=== PATIENT | male | born 1950 | race Caucasian/White ===

== ENCOUNTER 2023-05-08 06:25 | Emergency (ER) | payer MEDICARE, BC, SELFPAY ==
[2023-05-08 06:33] VITALS: BP 146/75; PULSE 91; RESP 20; TEMP 36.8; O2SAT 96; BMI 27.4
--- NOTE | 2023-05-08 06:52 | ED_ITS ---
HPI - General Adult General Chief complaint: Urogenital Problems, Male Stated complaint: cannot urinate Time Seen by Provider: 05/08/23 06:51 History of Present Illness HPI narrative: Patient aox4, ABCs intact. Patient c/o urinary retention, fever and shaking since Monday. 72-year-old man presenting to the emergency department with concern of difficulty urinating head increasingly so. Does not recall history of severe urinary retention. Measured a fever at around 101 I believe about a day and a half ago. Had some shakes at that time to. Yesterday at 100. He acknowledges today that his temperature is normal. Is not really having any pain more of discomfort across the low abdomen. No rashes. No shortness of breath no chest pain. Related Data Home Medications Medication Instructions Recorded Confirmed aspirin 325 mg tablet,delayed 325 mg PO QDAY 02/02/23 05/08/23 release atorvastatin 40 mg tablet 40 mg PO DAILY 02/02/23 05/08/23 carvedilol 25 mg tablet 25 mg PO BID 02/02/23 05/08/23 lisinopril 20 mg tablet 20 mg PO DAILY 02/02/23 05/08/23 methotrexate sodium 2.5 mg tablet 20 mg PO 02/02/23 02/02/23 Allergies Allergy/AdvReac Type Severity Reaction Status Date / Time Penicillins Allergy Unknown Verified 05/08/23 06:33 Review of Systems Status of ROS: Reports: 6 or more systems reviewed and unremarkable except as noted in History and below [facility] Social History Smoking Status: Never smoker Do you use any of these nicotine containing products: None Non-prescribed substance use: denies use Exam Narrative: Exam Narrative: Pleasant. Seems a little distracted, uncertain. Easily conversant though. Breathing easily. Lungs appear to be clear. Heart with mildly elevated rate in a regular rhythm. Little distant but no murmur rub or gallop identified. Abdomen is soft and mildly uncomfortable to palpation across lower abdomen. No discrete masses are appreciated. Has no flank pain. Extremities are without edema. Skin is warm and dry. Cranial nerves 2-12 intact. Const: Vital Signs, click to edit/add: Vital Signs - 24 hr 05/08/23 06:33 05/08/23 08:53 05/08/23 08:57 Temperature 98.3 F 100.0 F H 100.0 F H Pulse Rate [Pulse Oximeter] 91 88 Respiratory Rate 20 16 Blood Pressure [Ri ght Upper Arm] 146/75 H 141/69 H Pulse Oximetry 96 98 Oxygen Delivery Me thod Room Air Room Air Documenting provider has reviewed patient's vital signs: yes Course Vital Signs Vital signs: Initial Vital Signs Temperature 98.3 F 05/08/23 06:33 Temperature Source Temporal Artery Scan 05/08/23 06:33 Pulse Rate 91 05/08/23 06:33 Pulse Strength 0+ Absent 05/08/23 06:33 Respiratory Rate 20 05/08/23 06:33 Blood Pressure 146/75 H 05/08/23 06:33 Blood Pressure Mean 98 05/08/23 06:33 Pulse Oximetry 96 05/08/23 06:33 Oxygen Delivery Method Room Air 05/08/23 06:33 Vital Signs Temperature 98.3 F 05/08/23 06:33 Pulse Rate 91 05/08/23 06:33 Respiratory Rate 20 05/08/23 06:33 Blood Pressure 146/75 H 05/08/23 06:33 Pulse Oximetry 96 05/08/23 06:33 Oxygen Delivery Method Room Air 05/08/23 06:33 Temperature 100.0 F H 05/08/23 08:57 Pulse Rate 88 05/08/23 08:57 Respiratory Rate 16 05/08/23 08:57 Blood Pressure 141/69 H 05/08/23 08:57 Pulse Oximetry 98 05/08/23 08:57 Oxygen Delivery Method Room Air 05/08/23 08:57 Medical Decision Making MDM Narrative Medical decision making narrative: I had initially suspect some degree of urinary tract infection maybe precipitating a urinary retention situation. Will need to place a Gutierrez for better measurement as prior to seeing this patient I did request bladder scan noting 266 mL. Scanner is generally unreliable however. Concern of sepsis alt amadeo vitals this time do not support that. Labs will be pending. Methotrexate noted in medications White count is mildly elevated. Urine is positive. Given Rocephin. May have developed some pyelonephritis here. Anticipate continuing then ciprofloxacin outpatient. Vitals have been well during time in the emergency department. May actually chronically have some degree of urinary retention. Do intend to pull this Gutierrez prior to departure. See patient discharge plan. Lab Data Lab results reviewed: Yes I reviewed the patient's lab results Labs: Lab Results 05/08/23 05/08/23 Range/Units 07:10 07:20 WBC 12.83 H (4.50-11.00) K/uL RBC 4.08 L (4.30-5.90) m/uL Hgb 13.1 L (13.5-17.5) gm/dL Hct 38.3 (37.0-53.0) % MCV 94 (80-100) fL MCH 32 (26-34) pg MCHC 34 (32-36) gm/dL RDW Coeff of Amos 13.1 (11.5-15.5) % Plt Count 133 L (140-440) K/uL Neut % (Auto) 89.7 H (42.0-72.0) % Lymph % (Auto) 3.0 L (20-44) % [place] % (Auto) 6.7 (0.0-11.0) % Eos % (Auto) 0.1 (0.0-7.0) % Baso % (Auto) 0.1 (0.0-3.0) % Neut # (Auto) 11.50 H (1.7-7.0) K/uL Lymph # (Auto) 0.40 L (0.90-2.90) K/uL [place] # (Auto) 0.90 (0.00-0.90) K/UL Eos # (Auto) 0.00 (0.00-0.50) K/uL Baso # (Auto) 0.00 (0.00-0.30) K/uL Abs Immat Gran (auto) 0.10 (0.00-0.30) K/uL Imm/Tot Granulo (auto) 0.4 % Sodium 134 L (135-149) mmol/L Potassium 3.4 L (3.6-5.1) mmol/L Chloride 100 (96-114) mmol/L Carbon Dioxide 27 (20-32) mmol/L BUN 16 (7-30) mg/dL Creatinine 0.6 (0.5-1.5) mg/dL Estimated Creat Clear 63.65 Estimated GFR 102 ml/min Glucose 150 H (60-115) mg/dL Lactate 1.0 (0.5-1.9) mmol/L Calcium 8.6 (8.4-10.6) mg/dL C-Reactive Protein 17.2 H (0.5-1.0) mg/dL Urine Color Yellow (Yellow) Urine Appearance Slightly Cloudy A (Clear) Urine pH 5.5 (5.0-8.5) Ur Specific [place] 1.020 (1.000-1.030) Urine Protein 1+ A (Negative) Urine Glucose (UA) Negative (Negative) Urine Ketones 1+ A (Negative) Urine Blood 3+ A (Negative) Urine Nitrite Negative (Negative) Urine Bilirubin Negative (Negative) Urine Urobilinogen 2.0 A (0.2-1.0) Ur Leukocyte Esterase 1+ A (Negative) Urine RBC 5-10 A (0-2) Urine WBC 5-10 A (0-5) Ur Squamous Epith Cells None (None-Few) Urine Bacteria Many A (None) SARS-CoV-2 (PCR) Negative SARS-CoV-2 (Negative) Influenza Type A (PCR) Negative PCR FLU A (Negative) Influenza Type B (PCR) Negative PCR FLU B (Negative) Discharge Plan Discharge Clinical Impression: Urinary tract infection, Urinary retention Patient Disposition: Home w/ Parent or Adult Condition: Improved Additional Instructions: Focus on hydration, ideally with water. Can take ibuprofen or acetaminophen though if fever seems to be increasing, you are feeling more weak, repeated vomiting, I would return to the emergency department. Monitor your urine out to get an idea whether or not you are feeling empty. Might follow up in primary care to get this reassessed in the future. Rest over the next couple of days. A urine culture is pending here. Will call you if we need to change antibiotics. Blood cultures are also pending. Ciprofloxacin from [facility]. Prescriptions: No Action atorvastatin 40 mg tablet 40 mg PO DAILY carvedilol 25 mg tablet 25 mg PO BID lisinopril 20 mg tablet 20 mg PO DAILY methotrexate sodium 2.5 mg tablet 20 mg PO aspirin 325 mg tablet,delayed release (DR/EC) 325 mg PO QDAY Follow Up/Referrals: Edgardo Price MD [Primary Care Provider] - Stand Alone Forms: [employer] Info Instructions
[2023-05-08 07:45] LABS: Basophils Percent Auto 0.1 % (0.0-3.0); Eosinophils Percent Auto 0.1 % (0.0-7.0); Hematocrit 38.3 % (37.0-53.0); Hemoglobin* 13.1 gm/dL (13.5-17.5); Immature Granulocytes Pct Auto 0.4 %; Mean Corpuscular HGB Conc 34 gm/dL (32-36); Mean Corpuscular Hemoglobin 32 pg (26-34); Mean Corpuscular Volume 94 fL (80-100); Monocytes Percent Auto 6.7 % (0.0-11.0); Neutrophils Percent Auto 89.7 % (42.0-72.0); Platelet Count* 133 K/uL (140-440); RDW Coefficient of Variation % 13.1 % (11.5-15.5); Red Blood Count 4.08 m/uL (4.30-5.90); White Blood Count* 12.83 K/uL (4.50-11.00)
[2023-05-08 07:52] LABS: Slide Review Reflex No
[2023-05-08 08:04] LABS: Chloride* 100 mmol/L (96-114); Potassium* 3.4 mmol/L (3.6-5.1); Sodium* 134 mmol/L (135-149)
[2023-05-08] MEDS: 0.9 % SODIUM CHLORIDE 1000 ml 1,000 ML IV (08:06)
[2023-05-08 08:07] LABS: Creatinine* 0.6 mg/dL (0.5-1.5); Est. Creatinine Clearance* 63.65; Estimated Glomerular Filt Rate 102 ml/min
[2023-05-08 08:08] LABS: Blood Urea Nitrogen* 16 mg/dL (7-30); Calcium* 8.6 mg/dL (8.4-10.6); Carbon Dioxide* 27 mmol/L (20-32); Glucose* 150 mg/dL (60-115)
[2023-05-08 08:09] LABS: Appearance Urine Slightly Cloudy (Clear); Bilirubin Urine Negative (Negative); Blood Urine 3+ (Negative); Color Urine Yellow (Yellow); Glucose Urine Negative (Negative); Ketones Urine 1+ (Negative); Leukocyte Esterase Urine 1+ (Negative); Nitrite Urine Negative (Negative); Protein Urine 1+ (Negative); pH Urine 5.5 (5.0-8.5)
[2023-05-08 08:15] LABS: Bacteria Urine Many
[2023-05-08 08:23] LABS: PCR FLU A Negative PCR FLU A (Negative); PCR FLU B Negative PCR FLU B (Negative)
[2023-05-08 08:24] LABS: C Reactive Protein* 17.2 mg/dL (0.5-1.0)
[2023-05-08 08:28] LABS: SARS PCR* Negative SARS-CoV-2 (Negative)
[2023-05-08] MEDS: cefTRIAXone 1 GM in 0.9 % SODIUM CHLORIDE Mini-bag 100 ML IVPB (08:44)
[2023-05-08 08:53] VITALS: TEMP 37.8
[2023-05-08 08:57] VITALS: BP 141/69; PULSE 88; RESP 16; TEMP 37.8; O2SAT 98
[2023-05-08] MEDS: ACETAMINOPHEN 500 MG TABLET 1000 MG PO (09:18)
--- NOTE | 2023-05-08 19:02 | ED.NURSE ---
chart accessed due to calling here and wanting to know what he should do if the urinary output was slowing. is feeling very weak yet. was encouraged to drink more and to absolutely take care of himself and rest. will return to ed if he feels that he is worsening -or fever becomes high.
== END 2023-05-08 10:04 | disposition home or self-care (01) ==
PROVIDERS: Emergency Provider Family Medicine; PCP Family Medicine
DX: N39.0 Urinary tract infection, site not specified (principal)
CPT/HCPCS: 36415; 51702; 80048; 81001; 83605; 85025; 86140; 87040; 87086; 87186; 87631; 96365; 99283; 99284; A9270; J0696; J7030

== ENCOUNTER 2023-05-10 09:40 | Emergency (ER) | payer MEDICARE, BC, SELFPAY ==
[2023-05-10 09:54] VITALS: BP 120/75; PULSE 84; RESP 16; TEMP 36.3; O2SAT 95; BMI 27.4
[2023-05-10 10:14] LABS: Appearance Urine Clear (Clear); Bilirubin Urine Negative (Negative); Blood Urine 1+ (Negative); Color Urine Yellow (Yellow); Glucose Urine Negative (Negative); Ketones Urine Negative (Negative); Leukocyte Esterase Urine 1+ (Negative); Nitrite Urine Negative (Negative); Protein Urine Negative (Negative); Specific Gravity Urine <= 1.005 (1.000-1.030); Urobilinogen Urine 0.2 (0.2-1.0)
--- NOTE | 2023-05-10 10:15 | ED.NURSE ---
bladder scan done, repeated 4x. 1st one amount was 310ml, last two scans were 610-676ml.
[2023-05-10 10:34] LABS: Bacteria Urine Moderate; RBC Urine 0-2 (0-2); Squamous Epithelial Cell Urine Moderate (None-Few)
--- NOTE | 2023-05-10 10:35 | ED.NURSE ---
urinated approx 270ml in the urinal
--- NOTE | 2023-05-10 10:48 | ED_ITS ---
HPI - Abdominal Pain General Time Seen by Provider: 10:48 Date Seen: 05/10/23 Chief Complaint: Abdominal Pain Stated Complaint: UTI issues still happening from 05/08 Time Seen by Provider: 05/10/23 10:48 Source: patient, RN notes reviewed and old records reviewed Mode of arrival: ambulatory Limitations: no limitations History of Present Illness HPI narrative: Patient is a very pleasant 72-year-old male with recent history of urinary retention, diagnosis of UTI who comes to the emergency room for evaluation of abdominal discomfort and fever. Patient noted to have been seen on MondayMay 08 at which time he had approximately 250 mL of urinary retention as well as UTI. A catheter was placed and then removed. Patient then had 1 dose of IV Rocephin and was placed on Cipro as an outpatient. Patient spoke to my partner Dr. Lauren this morning with complaints of fever yesterday. Tells me that he had a fever up to 101.8 and his states that has been even higher than that at times. This has been associated with 1 episode of vomiting prior to coming here. No diarrhea or constipation. Denies cold cough or respiratory symptoms at this time. Patient states that he had been able to urinate as long as he was increasing his water intake but last night he is back to just dribbling small amounts. He notes that he feels a lot of pressure in his abdomen. Related Data Home Medications Medication Instructions Recorded Confirmed aspirin 325 mg tablet,delayed 325 mg PO QDAY 02/02/23 05/08/23 release atorvastatin 40 mg tablet 40 mg PO DAILY 02/02/23 05/08/23 carvedilol 25 mg tablet 25 mg PO BID 02/02/23 05/08/23 lisinopril 20 mg tablet 20 mg PO DAILY 02/02/23 05/08/23 methotrexate sodium 2.5 mg tablet 20 mg PO 02/02/23 02/02/23 Allergies Allergy/AdvReac Type Severity Reaction Status Date / Time morphine Allergy Intermediate Hallucinati Verified 05/10/23 10:05 ng Penicillins Allergy Unknown Verified 05/10/23 10:05 Review of Systems Status of ROS Reports: 10 or more systems reviewed and unremarkable except as noted in History and below Const Reports: fever, chills and fatigue ENMT Denies: neck pain or difficulty swallowing Cardio Denies: chest pain or shortness of breath with exertion Resp Denies: shortness of breath or cough GI Reports: abdominal pain, nausea and vomiting; Denies: diarrhea, difficulty swallowing or blood in stool Reports: difficulty urinating, decreased urine ouput and urinary dribbling Musculo Denies: neck pain Neuro Denies: weakness in extremities Endo Reports: fatigue PFSH PFS Social History Smoking Status: Never smoker Do you use any of these nicotine containing products: None Non-prescribed substance use: denies use Exam Narrative: Exam Narrative: Patient is alert and oriented. Very stoic in appearance. External ears eyes nose clear. Mentation normal. Neck is supple without lymphadenopathy Heart with regular rate and rhythm and lungs are clear. Abdomen is somewhat protuberant with firmness in the suprapubic pubic area. Discomfort with palpation in this area as well Lower extremities without edema moving all extremities. Const: Vital Signs, click to edit/add: Vital Signs - 24 hr 05/10/23 09:54 Temperature 97.3 F L Pulse Rate [Pulse Oximeter] 84 Respiratory Rate 16 Blood Pressure [Ri ght Upper Arm] 120/75 Pulse Oximetry 95 Oxygen Delivery Me thod Room Air Documenting provider has reviewed patient's vital signs: yes Course Course Hospital Course: At this time patient has history of urinary retention and nursing informs me that he has greater than 600 mils on the bladder scan. Will place a Gutierrez. However, the fever that he experience yesterday is quite worrisome to me. He is afebrile at this time. Lab work to include CBC, comprehensive, CRP, urinalysis. Reevaluation(s) Reevaluation #1: Will add blood cultures at this time. Vital Signs Vital signs: Initial Vital Signs Temperature 97.3 F L 05/10/23 09:54 Temperature Source Temporal Artery Scan 05/10/23 09:54 Pulse Rate 84 05/10/23 09:54 Respiratory Rate 16 05/10/23 09:54 Blood Pressure 120/75 05/10/23 09:54 Blood Pressure Mean 90 05/10/23 09:54 Blood Pressure Position Sitting 05/10/23 09:54 Pulse Oximetry 95 05/10/23 09:54 Oxygen Delivery Method Room Air 05/10/23 09:54 Vital Signs Temperature 97.3 F L 05/10/23 09:54 Pulse Rate 84 07/19/23 09:54 Respiratory Rate 16 05/10/23 09:54 Blood Pressure 120/75 05/10/23 09:54 Pulse Oximetry 95 05/10/23 09:54 Oxygen Delivery Method Room Air 05/10/23 09:54 Temperature 97.3 F L 05/10/23 09:54 Pulse Rate 84 05/10/23 09:54 Respiratory Rate 16 05/10/23 09:54 Blood Pressure 120/75 05/10/23 09:54 Pulse Oximetry 95 05/10/23 09:54 Oxygen Delivery Method Room Air 05/10/23 09:54 MDM - Abdominal Pain MDM Narrative Medical decision making narrative: 1. Urinary retention-patient had over 600 mils of urinary retention on ultrasound. Catheter inserted and over 750 drained. Patient is feeling much better at this point. His color has returned and he is much more talkative and interactive. At this time recommend converting to leg bag and leaving catheter in for likely 1-2 weeks. Would have patient follow-up with his primary MD and be referred to Urology for further evaluation. 2. UTI-patient has pansensitive E coli growing out from a sample collected on 05/08. At this time white count and CRP within normal limits and lactate is normal. There is no evidence of sepsis. Of course patient having a fever almost to 102 last night is worrisome but there has been no fever here in the emergency room. Will have patient continue on his current dosing of Cipro 500 mg p.o. b.i.d.. Will likely extend treatment to 7 days. Blood cultures were done today given patient's fever last night. Patient is to return to the emergency room for fever vomiting or worsening symptoms. 3. Disposition-home at this time. Nurse teaching for leg bag use. Return as needed. Medical Records Attestation: I reviewed the patient's medical records. Lab Data Attestation: I reviewed the patient's lab results. Labs: Lab Results 05/10/23 05/10/23 05/10/23 Range/Units 10:00 11:10 11:30 WBC 5.86 (4.50-11.00) K/uL RBC 3.69 L (4.30-5.90) m/uL Hgb 11.9 L (13.5-17.5) gm/dL Hct 34.1 L (37.0-53.0) % MCV 92 (80-100) fL MCH 32 (26-34) pg MCHC 35 (32-36) gm/dL RDW Coeff of Amos 13.1 (11.5-15.5) % Plt Count 135 L (140-440) K/uL Neut % (Auto) 75.2 H (42.0-72.0) % Lymph % (Auto) 9.9 L (20-44) % [place] % (Auto) 14.0 H (0.0-11.0) % Eos % (Auto) 0.5 (0.0-7.0) % Baso % (Auto) 0.2 (0.0-3.0) % Neut # (Auto) 4.40 (1.7-7.0) K/uL Lymph # (Auto) 0.60 L (0.90-2.90) K/uL [place] # (Auto) 0.80 (0.00-0.90) K/UL Eos # (Auto) 0.03 (0.00-0.50) K/uL Baso # (Auto) 0.01 (0.00-0.30) K/uL Abs Immat Gran (auto) 0.01 (0.00-0.30) K/uL Imm/Tot Granulo (auto) 0.2 % Sodium 136 (135-149) mmol/L Potassium 3.0 L (3.6-5.1) mmol/L Chloride 104 (96-114) mmol/L Carbon Dioxide 25 (20-32) mmol/L BUN 11 (7-30) mg/dL Creatinine 0.8 (0.5-1.5) mg/dL Estimated Creat Clear 63.65 Estimated GFR 93 ml/min Glucose 149 H (60-115) mg/dL Lactate 0.9 (0.5-1.9) mmol/L Calcium 8.4 (8.4-10.6) mg/dL Total Bilirubin 0.5 (0.1-1.5) mg/dL AST 33 (12-35) U/L ALT 34 (4-50) U/L Alkaline Phosphatase 93 (40-150) U/L C-Reactive Protein 7.5 H (0.5-1.0) mg/dL Total Protein 6.2 (6.0-8.3) g/dL Albumin 3.2 L (3.3-5.0) g/dL Urine Color Yellow Yellow (Yellow) Urine Appearance Clear Clear (Clear) Urine pH 6.0 6.0 (5.0-8.5) Ur Specific [place] <= 1.005 <= 1.005 (1.000-1.030) Urine Protein Negative Negative (Negative) Urine Glucose (UA) Negative Negative (Negative) Urine Ketones Negative Negative (Negative) Urine Blood 1+ A Trace-lysed A (Negative) Urine Nitrite Negative Negative (Negative) Urine Bilirubin Negative Negative (Negative) Urine Urobilinogen 0.2 0.2 (0.2-1.0) Ur Leukocyte Esterase 1+ A Negative (Negative) Urine RBC 0-2 0-2 (0-2) Urine WBC 5-10 A 0-2 (0-5) Ur Squamous Epith Cells Moderate A Few (None-Few) Urine Bacteria Moderate A None (None) Discharge Plan Discharge Clinical Impression: Urinary retention Urinary tract infection Qualifiers: Urinary tract infection type: acute cystitis Hematuria presence: without hematuria Qualified Code(s): N30.00 - Acute cystitis without hematuria Patient Disposition: Home, Self-Care Condition: Improved Additional Instructions: Continue taking Cipro 500 mg twice daily Prescriptions: No Action atorvastatin 40 mg tablet 40 mg PO DAILY carvedilol 25 mg tablet 25 mg PO BID lisinopril 20 mg tablet 20 mg PO DAILY methotrexate sodium 2.5 mg tablet 20 mg PO aspirin 325 mg tablet,delayed release (DR/EC) 325 mg PO QDAY Follow Up/Referrals: Edgardo Price MD [Primary Care Provider] - Stand Alone Forms: [employer] Info Instructions
[2023-05-10 11:16] LABS: Lactate* 0.9 mmol/L (0.5-1.9)
[2023-05-10 11:17] LABS: Basophils Absolute Auto 0.01 K/uL (0.00-0.30); Basophils Percent Auto 0.2 % (0.0-3.0); Eosinophils Absolute Auto 0.03 K/uL (0.00-0.50); Eosinophils Percent Auto 0.5 % (0.0-7.0); Hematocrit 34.1 % (37.0-53.0); Hemoglobin* 11.9 gm/dL (13.5-17.5); Immature Granulocytes Abs Auto 0.01 K/uL (0.00-0.30); Immature Granulocytes Pct Auto 0.2 %; Lymphocytes Percent Auto 9.9 % (20-44); Mean Corpuscular HGB Conc 35 gm/dL (32-36); Mean Corpuscular Hemoglobin 32 pg (26-34); Mean Corpuscular Volume 92 fL (80-100); Neutrophils Percent Auto 75.2 % (42.0-72.0); Platelet Count* 135 K/uL (140-440); RDW Coefficient of Variation % 13.1 % (11.5-15.5); Red Blood Count 3.69 m/uL (4.30-5.90); White Blood Count* 5.86 K/uL (4.50-11.00)
[2023-05-10 11:18] LABS: Slide Review Reflex No
--- NOTE | 2023-05-10 11:20 | ED.NURSE ---
Approx 100mLs urine emptied from urinal.
[2023-05-10 11:41] LABS: Albumin* 3.2 g/dL (3.3-5.0); Chloride* 104 mmol/L (96-114); Sodium* 136 mmol/L (135-149)
[2023-05-10] MEDS: lidocaine HCL 2 % JELLY (TOP) STERILE 6 ML UR (11:41)
--- NOTE | 2023-05-10 11:41 | ED.NURSE ---
16fr catheter placed, 10 cc balloon inflated.
[2023-05-10 11:44] LABS: Alanine Aminotransferase* 34 U/L (4-50); Alkaline Phosphatase* 93 U/L (40-150); Aspartate Amino Transferase* 33 U/L (12-35); Bilirubin Total* 0.5 mg/dL (0.1-1.5); Blood Urea Nitrogen* 11 mg/dL (7-30); Carbon Dioxide* 25 mmol/L (20-32); Creatinine* 0.8 mg/dL (0.5-1.5); Est. Creatinine Clearance* 63.65; Estimated Glomerular Filt Rate 93 ml/min; Total Protein* 6.2 g/dL (6.0-8.3)
[2023-05-10 11:45] LABS: Calcium* 8.4 mg/dL (8.4-10.6); Glucose* 149 mg/dL (60-115)
[2023-05-10 11:47] LABS: C Reactive Protein* 7.5 mg/dL (0.5-1.0)
--- NOTE | 2023-05-10 11:52 | ED.NURSE ---
Emptied ~700mLs clear pale yellow urine from catheter bag. notified.
[2023-05-10 11:56] LABS: Appearance Urine Clear (Clear); Bilirubin Urine Negative (Negative); Blood Urine Trace-lysed (Negative); Color Urine Yellow (Yellow); Glucose Urine Negative (Negative); Ketones Urine Negative (Negative); Leukocyte Esterase Urine Negative (Negative); Nitrite Urine Negative (Negative); Protein Urine Negative (Negative); Specific Gravity Urine <= 1.005 (1.000-1.030); Urobilinogen Urine 0.2 (0.2-1.0)
[2023-05-10 12:38] LABS: RBC Urine 0-2 (0-2); Squamous Epithelial Cell Urine Few (None-Few); WBC Urine 0-2 (0-5)
[2023-05-10] MEDS: POTASSIUM BICARB 25 MEQ EFFERVESCENT TAB 50 MEQ PO (12:40)
--- NOTE | 2023-05-10 12:55 | ED.NURSE ---
Additional ~350mLs urine drained from pace catheter bag. Leg bag applied to pt's L leg.
[2023-05-10 13:09] VITALS: BP 142/77; PULSE 69; O2SAT 97
== END 2023-05-10 13:12 | disposition home or self-care (01) ==
PROVIDERS: Emergency Provider Family Medicine; PCP Family Medicine
DX: R33.9 Retention of urine, unspecified (principal)
CPT/HCPCS: 36415; 51798; 80053; 81001; 83605; 85025; 86140; 87040; 87086; 99283; 99284; A9270

== ENCOUNTER 2025-08-01 09:15 | Outpatient (CLI) | payer MEDICARE, BC, SELFPAY ==
--- NOTE | 2025-08-01 10:19 | P.ANES_ITS ---
Anesthesia Charges Start Date/Time Anesthesia Start Date: 08/01/25 Anesthesia Start Time: 09:56 Stop Date/Time Anesthesia Stop Date: 08/01/25 Anesthesia Stop Time: 10:17 Summary Extremes of Age - Over 70 or under 1: KRAFT DIGESTER OPERATOR Coding CPT Codes CPT Codes: ANES UPR GI NDSC PX NOS - 85346 ([id number]) P2 - PATIENT W/MILD SYST DISEASE, QK - CYBER FORENSICS ANALYST 2-4 CNCRNT ANES PROC, QX - KRAFT DIGESTER OPERATOR SVC W/ MD MED DIRECTION Additional Codes: Summary - Extremes of Age - Over 70 or under 1: KRAFT DIGESTER OPERATOR ([id number])
--- NOTE | 2025-08-01 10:19 | W.ANESCHARGE ---
Anesthesia Charges Start Date/Time Anesthesia Start Date: 08/01/25 Anesthesia Start Time: 09:56 Stop Date/Time Anesthesia Stop Date: 08/01/25 Anesthesia Stop Time: 10:17 Summary Extremes of Age - Over 70 or under 1: CRAFT MANAGER Coding CPT Codes CPT Codes: ANES UPR GI NDSC PX NOS - 21730 ([id number]) P2 - PATIENT W/MILD SYST DISEASE, QK - BRUSH HAND 2-4 CNCRNT ANES PROC, QX - CRAFT MANAGER SVC W/ MD MED DIRECTION Additional Codes: Summary - Extremes of Age - Over 70 or under 1: CRAFT MANAGER ([id number])
--- NOTE | 2025-08-01 11:01 | P.ANES_ITS ---
Anesthesia Charges Start Date/Time Anesthesia Start Date: 08/01/25 Anesthesia Start Time: 09:56 Stop Date/Time Anesthesia Stop Date: 08/01/25 Anesthesia Stop Time: 10:17 Summary Extremes of Age - Over 70 or under 1: MDA Coding CPT Codes CPT Codes: ANES UPR GI NDSC PX NOS - 13963 ([id number]) P2 - PATIENT W/MILD SYST DISEASE, QK - CORN LAB TECHNICIAN 2-4 CNCRNT ANES PROC, QX - GERMINATION TESTING MANAGER SVC W/ MD MED DIRECTION Additional Codes: Summary - Extremes of Age - Over 70 or under 1: MDA ([id number])
--- NOTE | 2025-08-01 11:01 | W.ANESCHARGE ---
Anesthesia Charges Start Date/Time Anesthesia Start Date: 08/01/25 Anesthesia Start Time: 09:56 Stop Date/Time Anesthesia Stop Date: 08/01/25 Anesthesia Stop Time: 10:17 Summary Extremes of Age - Over 70 or under 1: MDA Coding CPT Codes CPT Codes: ANES UPR GI NDSC PX NOS - 73028 ([id number]) P2 - PATIENT W/MILD SYST DISEASE, QK - MEDICAL FILE CLERK 2-4 CNCRNT ANES PROC, QX - DONOR CENTER TECHNICIAN SVC W/ MD MED DIRECTION Additional Codes: Summary - Extremes of Age - Over 70 or under 1: MDA ([id number])
== END 2025-08-01 09:16 | disposition home or self-care (01) ==
LOC: OP CLINIC 09:17
PROVIDERS: PCP Family Medicine; Visit Provider Internal Medicine Gastroenterology
DX: K25.9 Gastric ulcer, unspecified as acute or chronic, without hemorrhage or perforation (principal); K21.9 Gastro-esophageal reflux disease without esophagitis; K44.9 Diaphragmatic hernia without obstruction or gangrene; R10.13 Epigastric pain
CPT/HCPCS: 00731; 43239; 88305; 99100; J2704; J3490